=== PATIENT | female | born 1980 | race Caucasian/White ===

== ENCOUNTER 2019-11-01 16:34 | Observation (INO) | payer BC ==
[~2019-11-01] VITALS: Ht 165.1 cm; Wt 117.9 kg
[2019-11-01 17:00] LABS: BASOPHILS ABSOLUTE AUTO 0.05 K/mm3 (0.00-0.23); BASOPHILS PERCENT AUTO 1 % (0-2); EOSINOPHILS ABSOLUTE AUTO 0.09 K/mm3 (0.00-0.68); EOSINOPHILS PERCENT AUTO 1 % (0-6); Hematocrit 41.6 % (33.0-51.0); Hemoglobin 13.8 g/dL (11.5-16.0); IMMATURE GRAN ABSOLUTE AUTO 0.03 K/mm3 (0.00-0.10); IMMATURE GRAN PERCENT AUTO 0 % (0-1); LYMPHOCYTES ABSOLUTE AUTO 3.59 K/mm3 (0.84-5.20); LYMPHOCYTES PERCENT AUTO 34 % (21-46); MONOCYTES ABSOLUTE AUTO 0.68 K/mm3 (0.16-1.47); MONOCYTES PERCENT AUTO 6 % (4-13); Mean Corpuscular HGB 29.6 pg (26.0-34.0); Mean Corpuscular HGB Conc 33.2 g/dL (31.5-36.5); Mean Corpuscular Volume 89 fL (80-100); Mean Platelet Volume 10.1 fL (9.1-12.4); NEUTROPHILS ABSOLUTE AUTO 6.22 K/mm3 (1.96-9.15); NEUTROPHILS PERCENT AUTO 58 % (41-73); Platelet Count 265 K/mm3 (150-400); RDW Coefficient Variation 13.4 % (11.7-14.2); RDW Standard Deviation 43.8 fL (35.1-46.3); Red Blood Cell Count 4.67 M/mm3 (3.80-5.20); White Blood Cell Count 10.66 K/mm3 (4.00-11.30)
[2019-11-01 17:20] LABS: Alanine Aminotransfer (ALT/SGP 24 U/L (12-78); Albumin, Blood 3.8 g/dL (3.4-5.0); Albumin/Globulin Ratio 1.3 (0.8-1.8); Alk Phos 64 U/L (50-136); Anion Gap 9 mmol/L (6-16); Aspartate Aminotrans (AST/SGOT 17 U/L (12-37); Bilirubin, Total 0.3 mg/dL (0.1-1.0); Blood Urea Nitrogen 14 mg/dL (8-24); Bun/Creatinine Ratio 19.7 (12.0-20.0); CO2, Blood 23 mmol/L (21-32); Calcium, Blood 9.1 mg/dL (8.5-10.1); Chloride, Blood 107 mmol/L (98-108); Creatinine, Blood 0.71 mg/dL (0.40-1.00); Glomerular Filtration Rate >60 (60-); Glucose, Blood 115 mg/dL (70-99); Potassium, Blood 3.3 mmol/L (3.5-5.5); Sodium, Blood 139 mmol/L (136-145); Total Protein, Blood 6.8 g/dL (6.4-8.2)
[2019-11-01 17:23] LABS: International Normalized Ratio 0.99; Prothrombin Time Results 10.6 Sec (9.7-11.5)
--- NOTE | 2019-11-02 04:02 | NUR ---
SHIFT SUMMARY: BARB IS A&OX4. RIGHT ANKLE ELEVATED ON PILLOWS. SCHEDULED FOR SURGERY TODAY, NO TIME AVAILABLE YET. NPO AT MIDNIGHT. SHE DID NOTICE MILD BILATERAL EDEMA OF HER HANDS THIS MORNING. SHE WAS ABLE TO GET UP TO THE BEDSIDE COMMODE WITH 1 PERSON ASSIST. 18 G AND 20 G IN L AC. SHE IS ABLE TO MAKE HER NEEDS KNOWN. SHE IS LYING IN BED WITH HER CALL LIGHT IN REACH. WILL REPORT TO DAY SHIFT RN.
[2019-11-02 04:51] LABS: Anion Gap 4 mmol/L (6-16); Blood Urea Nitrogen 9 mg/dL (8-24); CO2, Blood 25 mmol/L (21-32); Calcium, Blood 8.3 mg/dL (8.5-10.1); Chloride, Blood 111 mmol/L (98-108); Glomerular Filtration Rate >60 (60-); Glucose, Blood 95 mg/dL (70-99); Sodium, Blood 140 mmol/L (136-145)
--- NOTE | 2019-11-02 07:47 | NUR ---
DENIES ANY NEED FOR PAIN MEDS AT THIS TIME, REPORTS HAVING ADEQUATE PAIN RELIEF, IV ON L AC IS 18G AND PATENT, RLE ELEVATED ON PILLOWS, PLAN FOR OR THIS AFTERNOON PER DAY SURGERY, PT NOTIFIED.
--- NOTE | 2019-11-02 17:59 | NUR ---
MEDICATED FOR PAIN X2 TODAY, OOB TO BSC W/ STANDBY ASSIST AND WALKER, DENIED ANY NUMBNESS OR TINGLING, REPORTS GETTING ADEQUATE PAIN RELIEF W/ IV DILAUDID, PT TAKEN TO SURGERY THIS EVENING.
--- NOTE | 2019-11-02 21:14 | NUR ---
PT ARRIVED TO FLOOR FROM PACU. PT A/O, DENIES PAIN. TOES PWD, CAP REFILL WNL. PT ASISTED ONTO BEDPAN. PLAN TO MONITOR AND TX PER ORDERS.
--- NOTE | 2019-11-03 07:28 | NUR ---
POD 1 S/P RIGHT ANKLE ORIF. PT VSS. SPLINT TO RLE CDI, LEG EELVATED IN BED, ICE APPLIED BEHIND LEG. PT DENIED PAIN, CONT TO REP NUMBNESS TO FOOT, DOES REP MILD BURNING SENSATION TO ANKLE AREA THIS AM. PT UP OOB W/FWW+SBA, MAINTAINING NWB STATUS TO RLE. PT DODIE REG PO, NO N/V. PT USING CALL LIGHT FOR ASSISTANCE, REP GIVEN TO DAY RN.
[2019-11-03] MEDS ORDERED: OXYC5 PO (12:48)
[2019-11-03] MEDS ORDERED: ACET325 PO (12:48)
--- NOTE | 2019-11-03 13:50 | NUR ---
DISCHARGE SCRIPTS FOR PAIN MEDS AND EQUIPTMENT GIVEN. UNDERSTANDS DC INSTRUCITONS. CLEARED THERAPY AND PAIN WELL MANAGED. CYNDY WNL. DR SILVA ROUNDED AT NOON, [place] WITH DC.
== END 2019-11-03 13:44 | disposition home or self-care (01) ==
LOC: ER 16:34 → SURS 16:35 → ER 19:40 → SURS 19:50
PROVIDERS: Nurse Practitioner Acute Care; Physician Assistant; ADMIT Internal Medicine
DX: S82.841A Displaced bimalleolar fracture of right lower leg, initial encounter for closed fracture (principal); E87.1 Hypo-osmolality and hyponatremia; E87.6 Hypokalemia; E66.01 Morbid (severe) obesity due to excess calories; W18.30XA Fall on same level, unspecified, initial encounter; Y92.096 Garden or yard of other non-institutional residence as the place of occurrence of the external cause; Z68.41 Body mass index [BMI] 40.0-44.9, adult
CPT/HCPCS: 36415; 73560-RT; 73610; 80048; 80053; 84703; 85025; 85610; 85730; 86850; 86900; 86901; 93005; 93010; 96365; 96375; 97116; 97161; 99285-25; A9270; C1713; G0378; J0690; J1100; J1170; J1885; J2250; J2405; J2704; J3010; J3480; J7120